=== PATIENT | female | born 1980 | race Caucasian/White ===

== ENCOUNTER 2017-06-05 10:56 | Emergency (ER) | payer BC ==
[2017-06-05 11:29] VITALS: BP 136/79
--- NOTE | 2017-06-05 12:03 | UC ---
Mynor Solis Angela, scribed for Rahat Coker MD on 06/05/17 at 1200 . General HPI - HPI Summary HPI Summary: This pt is a 36 y/o female presenting to [facility] c/o heart racing, dizziness, and seeing black spots x4 days s/p mowing her lawn. Pt reports she lost vision of both eyes, seeing black spots 4 days ago, now resolved. Pt states she took 1 hour to mow her lawn. She notes she went inside after she felt like passing out and sat down but had no relief, denies syncope. She notes she get SOB with ambulation since the onset of her symptoms. Pt currently denies chest pain, fever, chills, heart racing. - History of Current Complaint Chief Complaint: UCGeneralIllness Stated Complaint: HEART RACING SOB DIZZY THIS PAST WEEKEND Hx Obtained From: Patient Hx Last Menstrual Period: 06/15/17 Onset/Duration: Sudden Onset, Resolved - Heart racing has resolved. Associated Signs & Symptoms: Positive: Dizziness - Now resolved., Diaphoresis, Palpitations, SOB - with ambulation, Other. Negative: Abdominal Pain, Back Pain , Confusion, Chest Pain, Fever, Nausea, Syncope, Vomiting, Weakness - Allergy/Home Medications Allergies/Adverse Reactions: Allergies Allergy/AdvReac Type Severity Reaction Status Date / Time No Known Allergies Allergy Verified 06/05/17 11:21 Home Medications: Home Medications Sertraline* [Zoloft*] 50 mg PO DAILY 06/05/17 [History Confirmed 06/05/17] PMH/Surg Hx/FS Hx/Imm Hx - Surgical History Surgical History: None - Social History Alcohol Use: Occasionally Substance Use Type: None Smoking Status (MU): Never Smoked Tobacco Review of Systems Constitutional: Negative Skin: Negative Eyes: Other - Black out of both eyes. ENT: Negative Respiratory: Shortness Of Breath - with ambulation Cardiovascular: Palpitations - now resolved. Gastrointestinal: Negative Motor: Negative Neurovascular: Negative Neurological: Negative All Other Systems Reviewed And Are Negative: Yes Physical Exam Triage Information Reviewed: Yes Vital Signs: Initial Vital Signs Temp 99.6 F 06/05/17 11:22 Pulse 47 06/05/17 11:22 Resp 16 06/05/17 11:22 BP 136/79 06/05/17 11:22 Pulse Ox 100 06/05/17 11:22 Vital Signs Reviewed: Yes - Additional Comments The patient is well-nourished in no acute distress and in no acute pain. The skin is warm and skin color reflects adequate perfusion. Pt is diaphoretic. There is a red rash on pt's face. HEENT: The head is normocephalic and atraumatic. The pupils are equal and reactive. The conjunctivae are clear and without drainage. Nares are patent and without drainage. Mouth reveals moist mucous membranes and the throat is without erythema and exudate. The external ears are intact. The ear canals are patent and without drainage. The tympanic membranes are intact. Neck is supple with full range of motion and non-tender. There is no neck vein distension. The thyroid is palpable but no enlarged. Respiratory: Chest is non-tender. Lungs are clear to auscultation and breath sounds are symmetrical and equal. Cardiovascular: Pt is bradycardic. There is no murmur or rub auscultated. There is no peripheral edema and pulses are symmetrical and equal. The capillary refill is <2 seconds. Abdomen: The abdomen is soft and non-tender. There are normal bowel sounds heard in all four quadrants and there is no organomegaly palpated. Musculoskeletal: There is no back pain noted. Extremities are non-tender with full range of motion. There is good capillary refill. There is no peripheral edema or calf tenderness elicited. Neurological: Patient is alert and oriented to person, place and time. The patient has symmetrical motor strength in all four extremities. Psychiatric: The patient has an appropriate affect and does not exhibit any anxiety or depression. Diagnostics - EKG Cardiac Rate: Bradycardia Cardiac Rhythm: Other Rhythm: New - Third degree heart block Course/Dx - Course Course Of Treatment: I explained to the pt traveling by ambulance to the ED due to thrid degree heart block. She understood that something catastrophic could occur to her. Pt's friend agreed to dump truck driver her to the Emergency Department for further evaluation. I spoke with Dr. Lopez and the charge nurse at [facility] who are aware of the pt arriving to the ED. - Differential Dx - Multi-Symptom Differential Diagnoses: Cardiac Ischemia, Metabolic Abnormality, Other - bradycardia, third degree heart block, acute dyspnea, obesity, hypothyroidism Provider Diagnoses: Bradycardia third degree heart block Discharge - Discharge Plan Condition: Stable Disposition: AGAINST MEDICAL ADVICE Patient Education Materials: Bradycardia (ED) Referrals: Ila Robertson MD [Medical Doctor] - The documentation as recorded by the Mynor peraza Angela accurately reflects the service I personally performed and the decisions made by me, Rahat Coker MD.
== END 2017-06-05 11:55 | disposition left against medical advice (07) ==
LOC: UCEAST 10:56
DX: R00.1 Bradycardia, unspecified (principal); I44.2 Atrioventricular block, complete; R06.02 Shortness of breath
CPT/HCPCS: 93005; 99212; G0463

== ENCOUNTER 2017-06-05 12:17 | Inpatient (IN) | payer BC ==
--- NOTE | 2017-06-05 12:55 | ED ---
Palpitations / Dysrhythmia - HPI Summary HPI Summary: Patient is an otherwise healthy 36yo F presenting with feelings of heart racing , near syncopal episodes, chest pressure x 1 day, dizziness, SOB, dyspnea on exertion and feeling "off" since Sunday. First noticed immediately after mowing her lawn and felt she needed to sit down to catch her breath. This is abnormal for her as she is generally healthy. Since Sunday, the dizziness, racing heart have lingered, but the chest pressure did not return. Takes OCP and Zoloft daily. Denies drugs, ETOH or smoking. Denies PMH related to cardiac issues. Fx includes materal grandfather GOMEZ. She has not taken medications including aspirin. Rest makes the symptoms better, exertion makes the symptoms worse. Denies diaphoresis or nausea. She was seen at this morning this who sent her to ED after noticing a 3rd degree heart block on EKG. Denies known tick bite or rash. - History of Current Complaint Chief Complaint: EDDysrhythmPalp Time Seen by Provider: 06/05/17 12:25 Hx Obtained From: Patient Onset/Duration: Sudden Onset Timing: Constant Severity Initially: Moderate Severity Currently: Moderate Character: Fast, Irregular Aggravating: Exertion Alleviating: Rest Associated Signs & Symptoms: Lightheadedness, Dizzy, Shortness of Breath - Risk Factors Cardiac: Negative Pulmonary Embolism: Oral Contraceptives Atrial Fibrillation: Negative - Allergy/Home Medications Allergies/Adverse Reactions: Allergies Allergy/AdvReac Type Severity Reaction Status Date / Time No Known Allergies Allergy Verified 06/05/17 11:21 Home Medications: Home Medications Levonorgestrel & Eth Estradiol [Marlissa 0.15-30 mg-Mcg] 1 tab PO DAILY [History Confirmed 06/05/17] PMH/Surg Hx/FS Hx/Imm Hx Previously Healthy: Yes GI History: Denies: Other GI Disorders - Immunization History Hx Pertussis Vaccination: No Immunizations Up to Date: Unable to Obtain/Confirm Infectious Disease History: No Infectious Disease History: Denies: Traveled Outside the [place] in Last 30 Days - Social History Occupation: Employed Full-time Lives: With Family Alcohol Use: Occasionally Hx Substance Use: No Substance Use Type: Reports: None Hx Tobacco Use: No Smoking Status (MU): Never Smoked Tobacco Review of Systems Constitutional: Negative Eyes: Negative Positive: Palpitations, Chest Pain Positive: Shortness Of Breath Genitourinary: Negative Positive: no symptoms reported, see HPI Musculoskeletal: Negative Neurological: Other - near syncope Positive: Weakness Psychological: Normal All Other Systems Reviewed And Are Negative: Yes Physical Exam Triage Information Reviewed: Yes Vital Signs On Initial Exam: Initial Vitals BP 150/73 06/05/17 12:22 Vital Signs Reviewed: Yes Appearance: Positive: Well-Appearing, Well-Nourished Skin: Positive: Warm, Skin Color Reflects Adequate Perfusion Eyes: Positive: Normal, EOMI, ОЛЬГА Neck: Positive: Supple, No Lymphadenopathy Respiratory/Lung Sounds: Positive: Clear to Auscultation, Breath Sounds Present Cardiovascular: Positive: Pulses are Symmetrical in both Upper and Lower Extremities, IRR Neurological: Positive: Normal, Sensory/Motor Intact, Alert, Oriented to Person Place, Time, Speech Normal Psychiatric: Positive: Normal AVPU Assessment: Alert Diagnostics - Vital Signs Vital Signs Temp Pulse Resp BP Pulse Ox 06/05/17 12:47 99 06/05/17 12:24 53 18 99 06/05/17 12:23 99.9 F 63 16 150/73 100 06/05/17 12:22 150/73 - Laboratory Result Diagrams: 06/05/17 12:45 06/05/17 12:45 Lab Statement: Any lab studies that have been ordered have been reviewed, and results considered in the medical decision making process. Course/Dx - Course Course Of Treatment: EKG shows 3rd degree heart block. Dr Mckeon called at 12: 45pm shortly after patients arrival to the ED. Infectious disease Dr. Valentin is not immigration consultant at this time. Lyme titers were drawn. Rocephin 2g started in ED. Will admit to hospitalist service for further workup. 3 EKG's all show 3rd degree. Spoke with DR. Zapata at 2:30p who accepts patient to admit. Patient made aware and is OK with plan. - Diagnoses Differential Diagnosis/HQI/PQRI: Positive: AV Block, Cardiomyopathy, Coronary Artery Disease, Medication Induced Provider Diagnoses: Third degree heart block Discharge - Discharge Plan Condition: Stable Disposition: ADMITTED TO [facility]
[2017-06-05 13:03] LABS: Hematocrit 36 % (35-47); Hemoglobin 12.1 g/dl (12.0-16.0); Mean Corpuscular HGB Conc 34 g/dl (31-36); Mean Corpuscular Hemoglobin 26 pg (27-31); Mean Corpuscular Volume 79 fL (80-97); Mean Platelet Volume 9 um3 (7.4-10.4); Red Blood Count 4.57 10^6/ul (4.0-5.4); Red Cell Distribution Width 15 % (10.5-15); White Blood Count 9.2 10^3/ul (3.5-10.8)
[2017-06-05 13:23] LABS: ALT 25 U/L (7-52); AST 19 U/L (13-39); Albumin 3.8 g/dL (3.2-5.2); Alkaline Phosphatase 91 U/L (34-104); Anion Gap 8 mmol/L (2-11); Blood Urea Nitrogen 12 mg/dL (6-24); CO2 Carbon Dioxide 22 mmol/L (22-32); Calcium 8.7 mg/dL (8.6-10.3); Chloride 106 mmol/L (101-111); Creatine Kinase 44 U/L (10-223); EGFR African American 105.6 (>60); EGFR Non-African American 82.1 (>60); Globulin 3.7 g/dL (2-4); Glucose 106 mg/dL (70-100); Magnesium 1.7 mg/dL (1.9-2.7); Potassium 3.6 mmol/L (3.5-5.0); Sodium 136 mmol/L (133-145); Total Protein 7.5 g/dL (6.4-8.9)
--- NOTE | 2017-06-05 13:26 | RAD ---
INDICATION: Chest pain. COMPARISON: There are no prior studies available for comparison. TECHNIQUE: A portable view of the chest was obtained. FINDINGS: Cardiac and mediastinal contours appear to be within normal limits. The lungs are clear. No pleural effusion is seen. IMPRESSION: NO EVIDENCE FOR ACUTE DISEASE.
[2017-06-05 13:49] LABS: T4 9.48 mcg/mL (6.09-12.23)
[2017-06-05 13:50] LABS: TSH (Thyroid Stimulating Horm) 1.39 mcIU/mL (0.34-5.60)
[2017-06-05] MEDS ORDERED: Magnesium Sulfate 2 GM IV* 2 GM/50 ML BAG IVPB ONE (15:01)
[2017-06-05] MEDS ORDERED: Ondansetron INJ* 2 MG/ML VIAL IV PRN (15:24)
[2017-06-05] MEDS ORDERED: Acetaminophen TAB* 325 MG PO PRN (15:24)
--- NOTE | 2017-06-05 17:23 | ECHO ---
Patient: TARUN MARTINEZ [facility] Rec#: [id number] : 1980 Date: 06/05/2017 Age: 36y Height: 175.26 cm / 69.0 in Weight: 101.6 kg / 223.9 lbs Sex: F BSA: 2.17 Room#: ICU 4 Admit Date#: 06/05/2017 Type: Inpatient Referring: Amber Zapata DO Reading: Milton Rivas MD Aircraft Seat Upholsterer: Malika Villalba RDCS,RDMS CC: Sherman Moore MD Transthoracic Echocardiogram Indication: Abnormal EKG, 3rd degree heart block BP: 131/61 HR: 47 Rhythm: NSR Findings History: Palpitations Technical Comments: The study quality is good. Completed 1710 Left Ventricle: The left ventricular chamber size is normal. There is no left ventricular hypertrophy. Global left ventricular wall motion and contractility are within normal limits. There is normal left ventricular systolic function. The estimated ejection fraction is 55-60%. Normal left ventricular diastolic filling is observed. Left Atrium: The left atrial chamber size is normal. Right Ventricle: The right ventricular chamber size and systolic function are within normal limits. Right Atrium: The right atrial cavity size is normal. Aortic Valve: The aortic valve is trileaflet. There is no evidence of aortic valve thickening. Systolic excursion of the aortic valve is normal. There is no evidence of aortic regurgitation. There is no evidence of aortic stenosis. Mitral Valve: The mitral valve leaflets appear normal. There is a trace of mitral regurgitation. There is no evidence of mitral stenosis. Tricuspid Valve: The tricuspid valve leaflets are normal. There is trace tricuspid regurgitation. Pulmonic Valve: The pulmonic valve appears normal. There is a trace pulmonic regurgitation. Pericardium: There is no significant pericardial effusion. Aorta: The aortic root appears normal. There is no dilatation of the aortic arch. Pulmonary Artery: The main pulmonary artery is not well visualized. Venous: The inferior vena cava is dilated. There is a greater than 50% respiratory change in the inferior vena cava dimension. Conclusions Global left ventricular wall motion and contractility are within normal limits. There is normal left ventricular systolic function. The estimated ejection fraction is 55-60%. Normal left ventricular diastolic filling is observed. No significant valvular disease: There is a trace of mitral regurgitation. There is trace tricuspid regurgitation. No reports of prior studies offered for comparison. Measurements Name Value Normal Range RVIDd (AP) 2D 2.8 cm (0.9 - 2.6) RVDdMajor (2D) 2.5 cm (2.2 - 4.4) RAd ISD 4CH 5.3 cm (3.4 - 4.9) RA (A4C)W 3.9 cm (2.9 - 4.6) IVSd (2D) 0.7 cm (0.6 - 1) LVPWd (2D) 0.8 cm (0.6 - 1) LVIDd (2D) 5.4 cm (3.6 - 5.4) LVIDs (2D) 3.4 cm - LV FS (2D) 37 % (25 - 45) Aortic Annulus 2.1 cm (1.4 - 2.6) Ao root diameter (2D) 2.7 cm (2.1 - 3.5) Ascending Ao 2.6 cm (2.1 - 3.4) Aortic arch 2.7 cm (1.8 - 3.4) LA dimension (AP) 2D 3.5 cm (2.3 - 3.8) LAd ISD 4CH 5.3 cm (2.9 - 5.3) LA ISD 4CH W 4 cm (2.5 - 4.5) Name Value Normal Range LA ESV SP 4CH (A/L) 53.88 ml - LA ESV SP 2CH (A/L) 45.56 ml - LA ESV BP (A/L) 53.61 ml - LA ESV BP (A/L) index 25 ml/m2 - LA ESV SP 4CH (MOD) 50.29 ml - LA ESV SP 2CH (MOD) 41.95 ml - Name Value Normal Range MV E-wave Vmax 0.9 m/sec - MV deceleration time 199 msec - MV A-wave Vmax 0.5 m/sec - MV E:A ratio 1.6 ratio - LV septal e' Vmax 0.12 m/sec - LV lateral e' Vmax 0.12 m/sec - LV E:e' septal ratio 7.5 ratio - LV E:e' lateral ratio 7.5 ratio - Name Value Normal Range AV Vmax 1.6 m/sec - AV VTI 34.2 cm - AV peak gradient 10 mmHg - AV mean gradient 4.7 mmHg - LVOT Vmax 1.4 m/sec - LVOT VTI 30.6 cm - LVOT peak gradient 8 mmHg - LVOT mean gradient 3.8 mmHg - WARREN Vmax 1 m/sec - Name Value Normal Range RAP 8 mmHg - IVC diameter 2.2 cm - Name Value Normal Range PV Vmax 0.8 m/sec - PV peak gradient 3.2 mmHg -
--- NOTE | 2017-06-05 19:47 | HP ---
CC: Dr. Moore * HISTORY AND PHYSICAL: DATE OF ADMISSION: 06/05/17 PRIMARY CARE PROVIDER: Dr. Moore. CHIEF COMPLAINT: Chest pain and lightheadedness. HISTORY OF PRESENT ILLNESS: Ms. Woodruff is a 36-year-old female whose story begins this past Sunday when she was out mowing her lawn and felt as if her heart was racing. She notes that when she does physical activity, sometimes her heart will race, so she will sit down and within 5 minutes, it usually goes away. She states she finished mowing her yard. She went inside, she sat down, and the racing continued. The patient states that she continued to have a feeling of her heart racing all weekend long. She does state, however, it seemed to wax and wane in intensity. This past Sunday, she noted she felt lightheaded upon standing up. She also felt as if there were black spots in her vision when she stood up. She states that she never fainted. She states also on Sunday, she had pressure in her chest. She also described having increased shortness of breath with minimal activity. She states that normally she will park at the back end of the [employer] parking lot and walk to the store without any difficulty. However, she states she parked in her usual spot and did not think that she was going to make it to the store. She states overall she has been otherwise feeling well prior to this. She denies any recent fevers or chills. She denies any tick bites that she is aware of. She is not aware of any erythema migrans rash. PAST MEDICAL HISTORY: Depression. PAST SURGICAL HISTORY: None. MEDICATIONS: 1. Zoloft 50 mg p.o. daily. 2. 1 tab p.o. daily. ALLERGIES: None. FAMILY HISTORY: Mom is living, she is 64, she has depression and hypertension. Dad living, he is 69, he has obstructive colitis. SOCIAL HISTORY: The patient is nonsmoker, she drinks alcohol rarely. 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 She is not , she has no children. She indicates her mom, Ryann Woodruff, would be her healthcare proxy. REVIEW OF SYSTEMS: A complete 11-system review of systems was obtained. Pertinent positives and negatives are as per HPI and otherwise negative. PHYSICAL EXAMINATION GENERAL: The patient is a well-developed, obese, young female, lying in the stretcher, in no acute distress. VITAL SIGNS: Blood pressure 131/61, pulse 49, respirations 18, temp 99.9, O2 sat 98% on room air. HEENT: Pupils are equal, they are round, they react to light. Extraocular muscles are intact. Oropharynx is clear. Oral mucosa is moist. NECK: There is no submandibular, cervical, or supraclavicular adenopathy. Thyroid is not enlarged. No thyroid nodules noted. PULMONARY: Lungs are clear to auscultation bilaterally. CARDIAC: Normal S1, S2. Heart rate is bradycardic. I did not appreciate any murmurs. There is no lower extremity edema. ABDOMEN: Bowel sounds are present. Abdomen is soft, nontender, nondistended. MUSCULOSKELETAL: There is no cyanosis or clubbing of the digits. There is full active range of motion of all 4 extremities. NEURO: Cranial nerves II through XII are grossly intact. Sensation is intact to light touch throughout. Strength is 5/5 and symmetric in both upper and lower extremities bilaterally. SKIN: Warm and dry. I did not appreciate any rash on the patient's upper extremities and back. She has pants on covering her lower extremities. When she is upstairs in a hospital bed, she will take off her pants and I will inspect her skin for evidence of erythema migrans rash. PSYCH: The patient is alert, she is oriented x3. Affect appears appropriate. DIAGNOSTIC STUDIES/LAB DATA: WBC 9.2, hemoglobin 12.1, hematocrit 36, platelets 191. INR 0.99. Sodium 136, potassium 3.6, chloride 106, CO2 22, BUN 12, creatinine 0.80, glucose 106, calcium 8.7, magnesium 1.7. Bilirubin 0.4, AST 19, ALT 25, alk phos 91. CPK 44. CK-MB 0.9. Troponin 0. Albumin 3.8. TSH 1.3. Chest x-ray: No evidence for acute disease. EKG reveals third-degree heart block with an escape rate in the 40s to 50s. ASSESSMENT AND PLAN: Ms. Woodruff is a 36-year-old female who for the last 3 days has been symptomatic with palpitations, lightheadedness, chest discomfort, increased shortness of breath with activity, who was found to be in third- degree heart block. 1. Third-degree heart block. 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 The patient, however, does not recall any tick bites or any of the evidence of erythema migrans rash. Lyme serology has been sent, results are pending at this time. Given the high likelihood that this represents Lyme carditis, the patient will be started on ceftriaxone 2 g IV daily. She will be monitored in the intensive care unit. Currently, she is hemodynamically stable. She has been seen in consultation by Dr. Mckeon. In addition to the ceftriaxone, she will get a transthoracic echocardiogram and a second troponin, though this is likely to be normal. 2. Depression: The patient will continue on her usual dose of Zoloft. 3. DVT prophylaxis. According to the Adult Thrombosis Prophylaxis Risk Factor Assessment Guide, the patient has a total risk factor score of 1 making her low risk. Ambulation will be utilized as DVT prophylaxis. 4. Code status is full and, again, the patient indicates her mom, Ryann Woodruff , is her healthcare proxy. TIME SPENT: Fifty-five minutes was spent admitting this patient. [id number]/[facility] #: [id number] NIKKI
[2017-06-05 19:58] LABS: Urine Bacteria 1+ (Absent); Urine Bilirubin Negative (Negative); Urine Glucose Negative (Negative); Urine Nitrite Negative (Negative)
--- NOTE | 2017-06-05 20:12 | CONS ---
CARDIOLOGY CONSULTATION: DATE OF CONSULT: 06/05/17 INDICATION FOR CONSULT: Third-degree heart block. HISTORY OF PRESENT ILLNESS: The patient is a 36-year-old female with very little past medical history, who has noticed an increased shortness of breath and dyspnea on exertion for the past 5 days or so. The patient states that she was mowing her lawn last Sunday and became very short of breath and felt like her heart was racing. The patient states that over the weekend, she felt similar episodes with less exertion and felt significantly more short of breath. Today, she was brought to the [facility] by one of the nurses in her office and she was found to be in third-degree heart block. She was transferred over to [facility]. The patient denies any tick bites. Denies any exposure to any medications. She denies alcohol or tobacco use. She denies any illicit drugs. PAST MEDICAL HISTORY: She does have a history of gastroesophageal reflux disease. MEDICATIONS: Outpatient medications: 1. Zoloft 50 mg a day. 2. control pills. ALLERGIES: No known drug allergies. FAMILY HISTORY: Mother has gallbladder disease, father has colon polyps; both of them are alive. SOCIAL HISTORY: She works at [employer] as an aide. She denies tobacco or alcohol use. PHYSICAL EXAM: Height is 5 feet 9 inches, weight 224 pounds, heart rate is 50, blood pressure 131/61, respiratory rate is 18, oxygen saturation 98% on room air. Sclerae anicteric. Oropharynx is pink without erythema. Carotids are 2+ without bruits. JVD is normal. Thyroid is normal. Cardiac Exam: S1, S2 without any murmurs, rubs, or gallops. Lungs are clear to auscultation bilaterally. There is no dullness to percussion. Abdomen is soft, nontender, and nondistended with normoactive bowel sounds. Extremities show no edema. She has 2+ pulses throughout. The patient is awake, alert, and oriented. She moves all 4 extremities equally. There is no evidence of a rash. DIAGNOSTIC STUDIES/LAB DATA: CBC within normal limits. Chemistry is within normal limits. TSH 1.39. AST and ALT are within normal limits. EKG demonstrates normal sinus rhythm with intermittent third-degree heart block. Chest x-ray is normal. IMPRESSION: This is a 36-year-old female who comes to the emergency room because of dyspnea on exertion. She was found to be in third-degree heart block. 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 PLAN: The patient will be started on appropriate antibiotics. Lyme titers have been sent. Her thyroid is normal. The patient will get an echocardiogram here in the hospital. The patient will be observed for the next 4 to 5 days in the intensive care unit. This was discussed with Dr. Amber Zapata, who will be admitting the patient. [id number]/[facility] #: [id number] MTDD
[2017-06-05] MEDS: LEVONORGESTREL PO SCH (22:01)
[2017-06-05] MEDS: ETHINYL ESTRADIOL PO SCH (22:01)
--- NOTE | 2017-06-06 07:12 | PN ---
Subjective Date of Service: 06/06/17 Interval History: Pt is feeling well this AM. She denies any chest discomfort this AM but did have some mild discomfort last evening. She denies any lightheadedness. Objective Active Medications: Acetaminophen (Tylenol Tab*) 650 mg PO Q4H PRN PRN Reason: PAIN Ceftriaxone Sodium 2 gm/ (Sodium Chloride) 100 mls @ 200 mls/hr IVPB Q24H RAJNI Pto: (Levonorgestrel & Eth Estradiol [ Marlissa 0.15-30 Mg- Mcg] 1 Tab) 1 tab PO BEDTIME [facility] Last Admin: 06/05/17 22:01 Dose: 1 tab Ondansetron HCl (Zofran Inj*) 4 mg IV Q6H PRN PRN Reason: NAUSEA Sertraline HCl (Zoloft*) 50 mg PO DAILY [facility] Vital Signs 06/05/17 06/05/17 06/05/17 15:00 15:32 15:46 Temperature Pulse Rate 69 48 48 Respiratory 18 23 18 Rate Blood Pressure 131/61 126/58 (mmHg) O2 Sat by Pulse 98 97 98 Oximetry 06/05/17 06/05/17 06/05/17 15:57 16:00 16:01 Temperature 98.4 F Pulse Rate 50 53 46 Respiratory 19 18 Rate Blood Pressure 148/71 128/72 128/72 (mmHg) O2 Sat by Pulse 98 98 98 Oximetry 06/05/17 06/05/17 06/05/17 16:15 16:30 16:46 Temperature Pulse Rate 47 48 47 Respiratory 17 14 11 Rate Blood Pressure 126/67 127/61 117/69 (mmHg) O2 Sat by Pulse 97 98 97 Oximetry 06/05/17 06/05/17 06/05/17 17:00 17:01 17:34 Temperature Pulse Rate 47 46 45 Respiratory 15 25 23 Rate Blood Pressure 118/67 120/45 (mmHg) O2 Sat by Pulse 97 96 97 Oximetry 06/05/17 06/05/17 06/05/17 17:46 18:00 18:24 Temperature Pulse Rate 45 45 Respiratory 20 24 21 Rate Blood Pressure 119/70 (mmHg) O2 Sat by Pulse 98 96 Oximetry 06/05/17 06/05/17 06/05/17 18:30 19:00 19:30 Temperature Pulse Rate 46 47 Respiratory 18 16 16 Rate Blood Pressure 119/61 111/64 130/71 (mmHg) O2 Sat by Pulse 97 97 Oximetry 06/05/17 06/05/17 06/05/17 19:31 20:00 21:00 Temperature 98.8 F Pulse Rate 46 44 Respiratory 28 18 Rate Blood Pressure 116/68 112/72 (mmHg) O2 Sat by Pulse 96 98 Oximetry 06/05/17 06/05/17 06/05/17 22:00 22:01 22:37 Temperature Pulse Rate 45 47 45 Respiratory 35 14 16 Rate Blood Pressure 111/58 (mmHg) O2 Sat by Pulse 97 98 97 Oximetry 06/05/17 06/05/17 06/05/17 22:38 23:00 23:23 Temperature 99.1 F Pulse Rate 45 45 Respiratory 15 9 Rate Blood Pressure 94/46 (mmHg) O2 Sat by Pulse 97 97 Oximetry 06/06/17 06/06/17 06/06/17 00:00 00:01 01:00 Temperature Pulse Rate 45 46 43 Respiratory 17 20 19 Rate Blood Pressure 105/63 117/68 (mmHg) O2 Sat by Pulse 96 99 97 Oximetry 06/06/17 06/06/17 06/06/17 02:00 03:00 04:00 Temperature 100.0 F Pulse Rate 43 43 42 Respiratory 18 25 16 Rate Blood Pressure 115/69 94/51 97/55 (mmHg) O2 Sat by Pulse 96 96 97 Oximetry 06/06/17 06/06/17 05:00 06:00 Temperature Pulse Rate 43 42 Respiratory 17 18 Rate Blood Pressure 100/60 85/46 (mmHg) O2 Sat by Pulse 98 98 Oximetry Oxygen Devices in Use Now: None Appearance: Young female lying flat in bed, NAD Eyes: No Scleral Icterus Ears/Nose/Mouth/Throat: Mucous Membranes Moist Respiratory: Symmetrical Chest Expansion and Respiratory Effort, Clear to Auscultation Cardiovascular: NL Sounds; No Murmurs; No JVD, No Edema, - - bradycardic and regular (3rd degree HB on monitor) Abdominal: NL Sounds; No Tenderness; No Distention Extremities: No Clubbing, Cyanosis Skin: No Rash or Ulcers, No Nodules or Sclerosis, - - no EM rash noted on pt's back/legs/trunk Neurological: Alert and Oriented x 3 Result Diagrams: 06/05/17 12:45 06/05/17 12:45 Microbiology and Other Data: Microbiology 06/05/17 15:55 Nasal Screen MRSA (PCR)(LUKAS) - Final Nasal Mrsa Negative Assess/Plan/Problems-Billing Ms Woodruff is a 36 yo F who has a h/o depression and presented to the ER with c/ o chest discomfort and lightheadedness and was found to be in 3rd degree HB. - Patient Problems (1) Third degree heart block Current Visit: Yes Status: Acute Code(s): I44.2 - ATRIOVENTRICULAR BLOCK, COMPLETE SNOMED Code(s): 22496898 Comment: The 3rd degree heart block is felt to be likely secondary to lyme though the patient does not recall any tick bites or EM rash. No rash is noticable currently. Will continue ceftriaxone 2g IV daily for now. Await lyme serology. A rare side effect of zoloft is AV block. Will stop her zoloft for the time being. She is asymptomatic currently so will just continue to monitor in the ICU. Echo is without any significant findings. Troponins negative. Cardiology is following. (2) Depression Current Visit: Yes Status: Acute Code(s): F32.9 - MAJOR DEPRESSIVE DISORDER , SINGLE EPISODE, UNSPECIFIED SNOMED Code(s): 83430671 Comment: Hold zoloft due to rare side effect of AV block. (3) DVT prophylaxis Current Visit: Yes Status: Acute Code(s): HPT1045 - SNOMED Code(s): 041328423 Comment: ambulation (4) Full code status Current Visit: Yes Status: Acute Code(s): Z78.9 - OTHER SPECIFIED HEALTH STATUS SNOMED Code(s): 458592411
[2017-06-06] MEDS ORDERED: Sertraline* 50 MG TAB PO SCH (09:00)
--- NOTE | 2017-06-06 16:54 | PN ---
Subjective Date of Service: 06/06/17 - CC: palpitations Interval History: The patient gets mildly orthostatically lightheaded getting OOB to toilet, but otherwise no new c/o. Medications Active Medications: Acetaminophen (Tylenol Tab*) 650 mg PO Q4H PRN PRN Reason: PAIN Ceftriaxone Sodium 2 gm/ (Sodium Chloride) 100 mls @ 200 mls/hr IVPB Q24H [facility] Last Admin: 06/06/17 11:58 Dose: 200 mls/hr Pto: (Levonorgestrel & Eth Estradiol [ Marlissa 0.15-30 Mg- Mcg] 1 Tab) 1 tab PO BEDTIME [facility] Last Admin: 06/05/17 22:01 Dose: 1 tab Ondansetron HCl (Zofran Inj*) 4 mg IV Q6H PRN PRN Reason: NAUSEA Objective Vital Signs: Temp Pulse Resp BP Pulse Ox 97.6 F 39 18 94/52 97 06/06/17 07:38 06/06/17 15:00 06/06/17 15:48 06/06/17 15:00 06/06/17 15:00 Oxygen Devices in Use Now: None Appearance: young woman, lying in bed, in no disteress. Eyes: No Scleral Icterus, PERRLA Ears/Nose/Mouth/Throat: Clear Oropharnyx, Mucous Membranes Moist Neck: No Thyroid Enlargement, Masses Respiratory: Clear to Auscultation Cardiovascular: NL Sounds; No Murmurs; No JVD, RRR Abdominal: No Hepatosplenomegaly - obese Extremities: No Edema, No Clubbing, Cyanosis Skin: No Rash or Ulcers Neurological: Alert and Oriented x 3, NL Muscle Strength and Tone Lines/Tubes/Other Access: Clean, Dry and Intact Peripheral IV Laboratory Results: INR (Anticoag Therapy) 0.99 (0.89-1.11) 06/05/17 12:45 APTT 26.2 seconds (26.0-36.3) 06/05/17 12:45 Total Bilirubin 0.40 mg/dL (0.2-1.0) 06/05/17 12:45 AST 19 U/L (13-39) 06/05/17 12:45 ALT 25 U/L (7-52) 06/05/17 12:45 Alkaline Phosphatase 91 U/L (34-104) 06/05/17 12:45 CK-MB (CK-2) 0.9 ng/mL (0.6-6.3) 06/05/17 12:45 Total Protein 7.5 g/dL (6.4-8.9) 06/05/17 12:45 Albumin 3.8 g/dL (3.2-5.2) 06/05/17 12:45 Globulin 3.7 g/dL (2-4) 06/05/17 12:45 Albumin/Globulin Ratio 1.0 (1-3) 06/05/17 12:45 TSH 1.39 mcIU/mL (0.34-5.60) 06/05/17 12:45 06/05/17 18:20 Troponin I 0.00 Lyme serology +, Ig breakdown/Western blot pending. EKG Data: NSR, AV dissociation with stable junctional escape. Assessment/Plan 36 yo with new onset palpitations and lightheaded with complete heart block. Looking like Lyme disease although the patient has had no awareness of a tick bite. Awaiting immunoglobulin titers. On ceftriaxone empirically, agree. Stable junctional escape in a young woman, continue to monitor.
[2017-06-06] MEDS: LEVONORGESTREL PO SCH (21:05)
[2017-06-06] MEDS: ETHINYL ESTRADIOL PO SCH (21:05)
--- NOTE | 2017-06-07 07:33 | PN ---
Subjective Date of Service: 06/07/17 Interval History: Pt is feeling about the same today. No chest pain or SOB. She has no new issues this AM. Objective Active Medications: Acetaminophen (Tylenol Tab*) 650 mg PO Q4H PRN PRN Reason: PAIN Ceftriaxone Sodium 2 gm/ (Sodium Chloride) 100 mls @ 200 mls/hr IVPB Q24H [facility] Last Admin: 06/06/17 11:58 Dose: 200 mls/hr Pto: (Levonorgestrel & Eth Estradiol [ Marlissa 0.15-30 Mg- Mcg] 1 Tab) 1 tab PO BEDTIME [facility] Last Admin: 06/06/17 21:05 Dose: 1 tab Ondansetron HCl (Zofran Inj*) 4 mg IV Q6H PRN PRN Reason: NAUSEA Vital Signs 06/06/17 06/06/17 06/06/17 07:27 07:38 08:00 Temperature 97.6 F Pulse Rate 42 Respiratory 16 25 Rate Blood Pressure (mmHg) O2 Sat by Pulse 96 Oximetry 06/06/17 06/06/17 06/06/17 08:01 09:00 09:59 Temperature Pulse Rate 42 43 Respiratory 19 16 16 Rate Blood Pressure 102/49 101/63 (mmHg) O2 Sat by Pulse 97 99 Oximetry 06/06/17 06/06/17 06/06/17 10:00 10:39 11:00 Temperature Pulse Rate 41 41 Respiratory 12 16 14 Rate Blood Pressure 102/67 100/57 (mmHg) O2 Sat by Pulse 98 96 Oximetry 06/06/17 06/06/17 06/06/17 11:22 12:00 12:08 Temperature Pulse Rate 40 40 Respiratory 16 13 19 Rate Blood Pressure 100/46 100/46 (mmHg) O2 Sat by Pulse 98 97 Oximetry 06/06/17 06/06/17 06/06/17 13:00 13:57 14:00 Temperature Pulse Rate 42 39 Respiratory 13 18 18 Rate Blood Pressure 107/62 87/45 (mmHg) O2 Sat by Pulse 98 97 Oximetry 06/06/17 06/06/17 06/06/17 14:57 15:00 15:47 Temperature Pulse Rate 39 Respiratory 18 14 18 Rate Blood Pressure 94/52 (mmHg) O2 Sat by Pulse 97 Oximetry 08/16/17 08/16/17 08/16/17 15:48 16:00 17:00 Temperature Pulse Rate 39 38 Respiratory 18 18 21 Rate Blood Pressure 109/65 (mmHg) O2 Sat by Pulse 97 99 Oximetry 06/06/17 06/06/17 06/06/17 17:01 17:20 18:00 Temperature Pulse Rate 39 40 Respiratory 13 18 16 Rate Blood Pressure 110/60 121/69 (mmHg) O2 Sat by Pulse 99 100 Oximetry 06/06/17 06/06/17 06/06/17 19:00 19:02 20:00 Temperature 98.0 F Pulse Rate 40 39 Respiratory 18 7 25 Rate Blood Pressure (mmHg) O2 Sat by Pulse 97 98 Oximetry 06/06/17 06/06/17 06/06/17 20:01 21:00 21:04 Temperature Pulse Rate 39 36 Respiratory 18 25 20 Rate Blood Pressure 107/58 98/65 (mmHg) O2 Sat by Pulse 95 97 Oximetry 06/06/17 06/06/17 06/06/17 22:00 23:00 23:12 Temperature Pulse Rate 36 35 35 Respiratory 17 16 18 Rate Blood Pressure 90/45 109/59 (mmHg) O2 Sat by Pulse 96 96 96 Oximetry 06/07/17 06/07/17 06/07/17 00:00 01:00 01:01 Temperature 99.6 F Pulse Rate 35 37 38 Respiratory 13 15 15 Rate Blood Pressure 88/46 114/66 (mmHg) O2 Sat by Pulse 96 98 97 Oximetry 06/07/17 06/07/17 06/07/17 02:00 03:00 03:26 Temperature Pulse Rate 35 Respiratory 16 15 18 Rate Blood Pressure (mmHg) O2 Sat by Pulse 96 Oximetry 06/07/17 06/07/17 06/07/17 03:27 03:28 03:29 Temperature Pulse Rate 35 35 35 Respiratory 18 18 18 Rate Blood Pressure (mmHg) O2 Sat by Pulse 96 96 95 Oximetry 06/07/17 06/07/17 06/07/17 03:30 03:31 03:32 Temperature Pulse Rate 35 35 35 Respiratory 17 20 17 Rate Blood Pressure (mmHg) O2 Sat by Pulse 95 95 96 Oximetry 06/07/17 06/07/17 06/07/17 03:33 03:34 03:35 Temperature Pulse Rate 35 35 36 Respiratory 14 18 19 Rate Blood Pressure (mmHg) O2 Sat by Pulse 96 96 96 Oximetry 0806/07/17 06/07/17 03:36 03:37 03:38 Temperature Pulse Rate 36 36 36 Respiratory 18 18 21 Rate Blood Pressure (mmHg) O2 Sat by Pulse 96 96 96 Oximetry 06/07/17 06/07/17 06/07/17 03:39 03:40 03:41 Temperature Pulse Rate 35 35 35 Respiratory 18 18 19 Rate Blood Pressure (mmHg) O2 Sat by Pulse 96 96 96 Oximetry 06/07/17 06/07/17 06/07/17 03:42 03:43 03:44 Temperature Pulse Rate 35 36 36 Respiratory 19 19 18 Rate Blood Pressure (mmHg) O2 Sat by Pulse 95 96 96 Oximetry 06/07/17 06/07/17 06/07/17 03:45 03:46 03:47 Temperature Pulse Rate 36 35 35 Respiratory 18 16 18 Rate Blood Pressure (mmHg) O2 Sat by Pulse 96 96 96 Oximetry 06/07/17 06/07/17 06/07/17 03:48 03:49 03:50 Temperature Pulse Rate 35 35 35 Respiratory 18 18 18 Rate Blood Pressure (mmHg) O2 Sat by Pulse 96 96 96 Oximetry 06/07/17 06/07/17 06/07/17 03:51 03:52 03:53 Temperature Pulse Rate 35 35 35 Respiratory 17 19 18 Rate Blood Pressure (mmHg) O2 Sat by Pulse 96 96 96 Oximetry 06/07/17 06/07/17 06/07/17 03:54 03:55 03:56 Temperature Pulse Rate 35 35 35 Respiratory 18 16 20 Rate Blood Pressure (mmHg) O2 Sat by Pulse 96 96 96 Oximetry 06/07/17 06/07/17 06/07/17 03:57 03:58 03:59 Temperature Pulse Rate 35 35 35 Respiratory 17 18 17 Rate Blood Pressure (mmHg) O2 Sat by Pulse 96 97 96 Oximetry 06/07/17 06/07/17 06/07/17 04:00 04:02 04:03 Temperature 98.9 F Pulse Rate 34 34 34 Respiratory 18 13 9 Rate Blood Pressure 99/53 (mmHg) O2 Sat by Pulse 96 97 97 Oximetry 06/07/17 06/07/17 06/07/17 04:04 04:05 04:06 Temperature Pulse Rate 35 34 34 Respiratory 5 13 14 Rate Blood Pressure (mmHg) O2 Sat by Pulse 97 96 96 Oximetry 06/07/17 06/07/1717 04:07 04:08 04:09 Temperature Pulse Rate 34 34 34 Respiratory 19 18 13 Rate Blood Pressure (mmHg) O2 Sat by Pulse 96 96 96 Oximetry 06/07/17 06/07/17 06/07/17 04:10 04:11 04:12 Temperature Pulse Rate 35 35 35 Respiratory 21 21 11 Rate Blood Pressure (mmHg) O2 Sat by Pulse 97 97 97 Oximetry 06/07/17 06/07/17 06/07/17 04:13 04:14 04:15 Temperature Pulse Rate 36 36 35 Respiratory 20 17 13 Rate Blood Pressure (mmHg) O2 Sat by Pulse 98 97 96 Oximetry 06/07/17 06/07/17 06/07/17 04:16 04:17 04:18 Temperature Pulse Rate 35 35 36 Respiratory 23 19 16 Rate Blood Pressure (mmHg) O2 Sat by Pulse 97 98 98 Oximetry 06/07/17 06/07/17 06/07/17 04:19 04:20 04:21 Temperature Pulse Rate 36 35 35 Respiratory 10 15 18 Rate Blood Pressure (mmHg) O2 Sat by Pulse 97 96 95 Oximetry 06/07/17 06/07/17 06/07/17 04:22 04:23 04:24 Temperature Pulse Rate 35 35 35 Respiratory 18 21 17 Rate Blood Pressure (mmHg) O2 Sat by Pulse 97 97 97 Oximetry 06/07/17 06/07/17 06/07/17 04:25 04:26 04:27 Temperature Pulse Rate 35 35 35 Respiratory 19 22 17 Rate Blood Pressure (mmHg) O2 Sat by Pulse 97 97 97 Oximetry 06/07/17 06/07/17 06/07/17 04:28 04:29 04:30 Temperature Pulse Rate 35 35 35 Respiratory 20 19 17 Rate Blood Pressure (mmHg) O2 Sat by Pulse 97 96 97 Oximetry 06/07/17 06/07/17 06/07/17 04:31 04:32 04:33 Temperature Pulse Rate 35 36 35 Respiratory 17 17 19 Rate Blood Pressure (mmHg) O2 Sat by Pulse 98 96 96 Oximetry 06/07/17 06/07/17 06/07/17 04:34 04:35 04:36 Temperature Pulse Rate 35 35 35 Respiratory 17 15 12 Rate Blood Pressure (mmHg) O2 Sat by Pulse 95 94 95 Oximetry 06/07/17 06/07/17 06/07/17 04:37 04:38 04:39 Temperature Pulse Rate 36 35 36 Respiratory 13 14 17 Rate Blood Pressure (mmHg) O2 Sat by Pulse 94 93 95 Oximetry 06/07/17 06/07/17 06/07/17 04:40 04:41 04:42 Temperature Pulse Rate 35 36 35 Respiratory 16 14 10 Rate Blood Pressure (mmHg) O2 Sat by Pulse 94 96 96 Oximetry 06/07/17 06/07/17 06/07/17 04:43 04:44 04:45 Temperature Pulse Rate 35 35 35 Respiratory 9 14 13 Rate Blood Pressure (mmHg) O2 Sat by Pulse 94 95 96 Oximetry 06/07/17 06/07/17 06/07/17 04:46 04:47 04:48 Temperature Pulse Rate 36 36 36 Respiratory 19 18 16 Rate Blood Pressure (mmHg) O2 Sat by Pulse 95 94 95 Oximetry 06/07/17 06/07/17 06/07/17 04:49 04:50 04:51 Temperature Pulse Rate 36 36 35 Respiratory 20 32 23 Rate Blood Pressure (mmHg) O2 Sat by Pulse 95 96 96 Oximetry 06/07/17 06/07/17 06/07/17 04:52 04:53 04:54 Temperature Pulse Rate 36 36 36 Respiratory 19 18 11 Rate Blood Pressure (mmHg) O2 Sat by Pulse 96 95 95 Oximetry 06/07/17 06/07/17 06/07/17 04:55 04:56 04:57 Temperature Pulse Rate 36 36 36 Respiratory 17 12 17 Rate Blood Pressure (mmHg) O2 Sat by Pulse 95 95 96 Oximetry 06/07/17 06/07/17 06/07/17 04:58 04:59 05:00 Temperature Pulse Rate 36 36 35 Respiratory 16 24 17 Rate Blood Pressure 117/62 (mmHg) O2 Sat by Pulse 95 95 95 Oximetry 06/07/17 06/07/17 06/07/17 05:02 05:03 05:04 Temperature Pulse Rate 36 36 36 Respiratory 20 22 24 Rate Blood Pressure (mmHg) O2 Sat by Pulse 96 95 96 Oximetry 06/07/17 06/07/17 06/07/17 05:26 05:27 05:28 Temperature Pulse Rate 36 35 35 Respiratory 18 18 24 Rate Blood Pressure (mmHg) O2 Sat by Pulse 94 94 95 Oximetry 06/07/17 06/07/17 06/07/17 05:29 05:30 05:31 Temperature Pulse Rate 35 36 36 Respiratory 17 19 18 Rate Blood Pressure (mmHg) O2 Sat by Pulse 95 95 94 Oximetry 06/07/17 06/07/17 06/07/17 05:32 05:33 05:34 Temperature Pulse Rate 35 35 36 Respiratory 18 18 21 Rate Blood Pressure (mmHg) O2 Sat by Pulse 94 94 95 Oximetry 06/07/17 06/07/17 06/07/17 05:35 05:36 05:37 Temperature Pulse Rate 36 35 36 Respiratory 18 22 17 Rate Blood Pressure (mmHg) O2 Sat by Pulse 95 94 94 Oximetry 06/07/17 06/07/17 06/07/17 05:38 05:39 05:40 Temperature Pulse Rate 36 36 36 Respiratory 17 18 18 Rate Blood Pressure (mmHg) O2 Sat by Pulse 94 94 94 Oximetry 06/07/17 06/07/17 06/07/17 05:41 05:42 05:43 Temperature Pulse Rate 36 36 36 Respiratory 19 19 17 Rate Blood Pressure (mmHg) O2 Sat by Pulse 94 94 94 Oximetry 06/07/17 06/07/17 06/07/17 05:44 05:45 05:46 Temperature Pulse Rate 37 36 36 Respiratory 17 18 18 Rate Blood Pressure (mmHg) O2 Sat by Pulse 95 94 95 Oximetry 06/07/17 06/07/17 06/07/17 05:47 05:48 05:49 Temperature Pulse Rate 36 36 36 Respiratory 19 18 19 Rate Blood Pressure (mmHg) O2 Sat by Pulse 95 94 95 Oximetry 06/07/17 06/07/17 06/07/17 05:50 05:51 05:52 Temperature Pulse Rate 36 36 36 Respiratory 18 18 18 Rate Blood Pressure (mmHg) O2 Sat by Pulse 95 95 95 Oximetry 06/07/17 06/07/17 06/07/17 05:53 05:54 05:55 Temperature Pulse Rate 36 36 36 Respiratory 22 18 18 Rate Blood Pressure (mmHg) O2 Sat by Pulse 94 94 94 Oximetry 06/07/17 06/07/17 06/07/17 05:56 05:57 05:58 Temperature Pulse Rate 36 36 36 Respiratory 18 19 18 Rate Blood Pressure (mmHg) O2 Sat by Pulse 94 94 94 Oximetry 06/07/17 06/07/17 06/07/17 05:59 06:00 06:02 Temperature Pulse Rate 36 36 35 Respiratory 21 21 18 Rate Blood Pressure 106/57 (mmHg) O2 Sat by Pulse 94 96 95 Oximetry 06/07/17 06/07/17 06/07/17 06:03 06:04 06:05 Temperature Pulse Rate 36 36 36 Respiratory 18 21 26 Rate Blood Pressure (mmHg) O2 Sat by Pulse 95 95 96 Oximetry 06/07/17 06/07/17 06/07/17 06:06 06:07 06:08 Temperature Pulse Rate 36 36 36 Respiratory 29 20 27 Rate Blood Pressure (mmHg) O2 Sat by Pulse 96 95 95 Oximetry 06/07/17 06/07/17 06/07/17 06:09 06:10 06:11 Temperature Pulse Rate 36 36 35 Respiratory 18 19 10 Rate Blood Pressure (mmHg) O2 Sat by Pulse 96 97 95 Oximetry 06/07/17 06/07/17 06/07/17 06:12 06:13 06:14 Temperature Pulse Rate 36 36 36 Respiratory 20 16 20 Rate Blood Pressure (mmHg) O2 Sat by Pulse 97 96 96 Oximetry 06/07/17 06/07/17 06:15 06:16 Temperature Pulse Rate 35 36 Respiratory 14 21 Rate Blood Pressure (mmHg) O2 Sat by Pulse 94 96 Oximetry Oxygen Devices in Use Now: None Appearance: Young female lying in bed, NAD Eyes: No Scleral Icterus Ears/Nose/Mouth/Throat: Mucous Membranes Moist Respiratory: Symmetrical Chest Expansion and Respiratory Effort, Clear to Auscultation Cardiovascular: NL Sounds; No Murmurs; No JVD, No Edema, - - bradycardic Abdominal: NL Sounds; No Tenderness; No Distention Extremities: No Clubbing, Cyanosis Skin: No Rash or Ulcers, No Nodules or Sclerosis Neurological: Alert and Oriented x 3 Result Diagrams: 06/05/17 12:45 06/05/17 12:45 Microbiology and Other Data: Microbiology 06/05/17 15:55 Nasal Screen MRSA (PCR)([facility]) - Final Nasal Mrsa Negative Assess/Plan/Problems-Billing Ms Woodruff is a 36 yo F who has a h/o depression and presented to the ER with c/ o chest discomfort and lightheadedness and was found to be in 3rd degree HB. - Patient Problems (1) Third degree heart block Current Visit: Yes Status: Acute Code(s): I44.2 - ATRIOVENTRICULAR BLOCK, COMPLETE SNOMED Code(s): 73571439 Comment: Lyme serology positive. Awaiting confirmatory testing. 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 Continue to monitor in the ICU in case she loses her good escape rhythm. (2) Depression Current Visit: Yes Status: Acute Code(s): F32.9 - MAJOR DEPRESSIVE DISORDER , SINGLE EPISODE, UNSPECIFIED SNOMED Code(s): 11958360 Comment: Hold zoloft due to rare side effect of AV block. (3) DVT prophylaxis Current Visit: Yes Status: Acute Code(s): DKX3560 - SNOMED Code(s): 620244335 Comment: ambulation (4) Full code status Current Visit: Yes Status: Acute Code(s): Z78.9 - OTHER SPECIFIED HEALTH STATUS SNOMED Code(s): 362094632
[2017-06-07 15:27] LABS: Lyme Disease IgG Ab WB Positive (Negative)
[2017-06-07] MEDS: LEVONORGESTREL PO SCH (20:31)
[2017-06-07] MEDS: ETHINYL ESTRADIOL PO SCH (20:31)
--- NOTE | 2017-06-08 13:43 | PN ---
Subjective Date of Service: 06/08/17 Interval History: Pt is feeling well. She denies any chest pain or SOB. She has not been up and walking much. No lightheadedness. Objective Active Medications: Acetaminophen (Tylenol Tab*) 650 mg PO Q4H PRN PRN Reason: PAIN Ceftriaxone Sodium 2 gm/ (Sodium Chloride) 100 mls @ 200 mls/hr IVPB Q24H [facility] Last Admin: 06/08/17 12:46 Dose: 200 mls/hr Pto: (Levonorgestrel & Eth Estradiol [ Marlissa 0.15-30 Mg- Mcg] 1 Tab) 1 tab PO BEDTIME [facility] Last Admin: 06/07/17 20:31 Dose: 1 tab Ondansetron HCl (Zofran Inj*) 4 mg IV Q6H PRN PRN Reason: NAUSEA Vital Signs 06/07/17 06/07/17 06/07/17 14:00 15:00 15:01 Temperature Pulse Rate 38 35 36 Respiratory 16 11 14 Rate Blood Pressure 112/53 104/53 (mmHg) O2 Sat by Pulse 96 96 Oximetry 06/07/17 06/07/17 06/07/17 15:22 16:00 17:00 Temperature 99.2 F Pulse Rate 36 36 Respiratory 16 17 Rate Blood Pressure 101/57 113/59 (mmHg) O2 Sat by Pulse 98 98 Oximetry 06/07/17 06/07/17 06/07/17 18:00 18:18 19:00 Temperature Pulse Rate 38 37 37 Respiratory 18 15 17 Rate Blood Pressure 120/64 120/64 119/53 (mmHg) O2 Sat by Pulse 99 99 97 Oximetry 06/07/17 06/07/17 06/07/17 19:43 20:00 20:01 Temperature 98.5 F Pulse Rate 37 36 Respiratory 20 17 Rate Blood Pressure 110/56 (mmHg) O2 Sat by Pulse 96 97 Oximetry 06/07/17 06/07/17 06/07/17 20:48 21:00 21:51 Temperature Pulse Rate 36 Respiratory 16 17 19 Rate Blood Pressure 128/60 (mmHg) O2 Sat by Pulse 96 Oximetry 06/07/17 06/07/17 06/07/17 22:00 22:01 23:00 Temperature Pulse Rate 36 37 35 Respiratory 20 17 17 Rate Blood Pressure 128/67 106/50 (mmHg) O2 Sat by Pulse 95 97 96 Oximetry 06/07/17 06/08/17 06/08/17 23:30 00:00 01:00 Temperature 98.8 F Pulse Rate 36 36 34 Respiratory 19 18 9 Rate Blood Pressure 97/43 104/46 (mmHg) O2 Sat by Pulse 95 95 96 Oximetry 06/08/17 06/08/17 06/08/17 02:00 03:00 03:57 Temperature 98.4 F Pulse Rate 35 34 Respiratory 12 16 15 Rate Blood Pressure 115/54 100/47 (mmHg) O2 Sat by Pulse 97 95 Oximetry 06/08/17 06/08/17 06/08/17 04:00 04:05 05:00 Temperature Pulse Rate 34 35 33 Respiratory 13 17 19 Rate Blood Pressure 119/63 (mmHg) O2 Sat by Pulse 97 94 96 Oximetry 06/08/17 06/08/17 06/08/17 05:01 06:00 06:01 Temperature Pulse Rate 33 34 34 Respiratory 17 17 16 Rate Blood Pressure 96/46 92/54 (mmHg) O2 Sat by Pulse 95 98 96 Oximetry 06/08/17 06/08/17 06/08/17 07:00 07:42 07:44 Temperature 97.8 F Pulse Rate 34 Respiratory 16 16 Rate Blood Pressure 106/58 (mmHg) O2 Sat by Pulse 95 Oximetry 06/08/17 06/08/17 06/08/17 08:00 09:00 09:01 Temperature Pulse Rate 35 36 37 Respiratory 18 19 18 Rate Blood Pressure 121/94 104/45 (mmHg) O2 Sat by Pulse 97 98 98 Oximetry 06/08/17 06/08/17 06/08/17 10:00 10:01 11:00 Temperature Pulse Rate 35 37 35 Respiratory 18 18 13 Rate Blood Pressure 116/51 (mmHg) O2 Sat by Pulse 96 95 95 Oximetry 06/08/17 06/08/17 06/08/17 11:01 11:08 11:36 Temperature 98.0 F Pulse Rate 36 35 Respiratory 18 17 Rate Blood Pressure 86/37 91/42 (mmHg) O2 Sat by Pulse 95 96 Oximetry 06/08/17 06/08/17 06/08/17 12:00 12:01 12:46 Temperature Pulse Rate 36 39 37 Respiratory 26 21 20 Rate Blood Pressure 111/53 119/62 (mmHg) O2 Sat by Pulse 95 97 98 Oximetry 06/08/17 06/08/17 13:00 13:01 Temperature Pulse Rate 37 37 Respiratory 17 14 Rate Blood Pressure 114/55 (mmHg) O2 Sat by Pulse 96 97 Oximetry Oxygen Devices in Use Now: None Appearance: Young female lying in bed, NAD Eyes: No Scleral Icterus Ears/Nose/Mouth/Throat: Mucous Membranes Moist Respiratory: Symmetrical Chest Expansion and Respiratory Effort, Clear to Auscultation Cardiovascular: NL Sounds; No Murmurs; No JVD, No Edema, - - bradycardic Abdominal: NL Sounds; No Tenderness; No Distention Extremities: No Clubbing, Cyanosis Skin: No Rash or Ulcers, No Nodules or Sclerosis Neurological: Alert and Oriented x 3 Result Diagrams: 06/05/17 12:45 06/05/17 12:45 Microbiology and Other Data: Microbiology 06/05/17 15:55 Nasal Screen MRSA (PCR)([facility]) - Final Nasal Mrsa Negative Assess/Plan/Problems-Billing Ms Woodruff is a 36 yo F who has a h/o depression and presented to the ER with c/ o chest discomfort and lightheadedness and was found to be in 3rd degree HB. - Patient Problems (1) Third degree heart block Current Visit: Yes Status: Acute Code(s): I44.2 - ATRIOVENTRICULAR BLOCK, COMPLETE SNOMED Code(s): 12427033 Comment: 2 IgM bands present on Western Blot. 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 Continue to await normalization of her heart rhythm. Will get ID consult on 06/11/17. (2) Depression Current Visit: Yes Status: Acute Code(s): F32.9 - MAJOR DEPRESSIVE DISORDER , SINGLE EPISODE, UNSPECIFIED SNOMED Code(s): 04181896 Comment: Hold zoloft due to rare side effect of AV block. (3) DVT prophylaxis Current Visit: Yes Status: Acute Code(s): HTY3652 - SNOMED Code(s): 642131466 Comment: ambulation (4) Full code status Current Visit: Yes Status: Acute Code(s): Z78.9 - OTHER SPECIFIED HEALTH STATUS SNOMED Code(s): 089975533
[2017-06-08] MEDS: ETHINYL ESTRADIOL PO SCH (20:59)
[2017-06-08] MEDS: LEVONORGESTREL PO SCH (20:59)
--- NOTE | 2017-06-09 09:55 | PN ---
Cardiology Progress Note Date of service: 06/09/17. CC: dizzy. The patient is ambulating and feeling well. Monitor: AV dissociation with stable escape, unchanged. Exam: awake alert, no neurological deficits. Cor: s1s2 regular, no murmurs. Lab: Lyme serologies c/w recent Lyme A/P Complete heart block, stable escape rhythm in setting of acute Lyme, Ceftriaxone day 4. -From my standpoint OK continue to monitor as potentially a reversable heart block. -Await Dr. Alonso's recommendations. Discussed the above issues with the patient and she is understanding.
--- NOTE | 2017-06-09 10:31 | PN ---
Subjective Date of Service: 06/09/17 Interval History: Pt is feeling well. No chest pain or lightheadedness with ambulation yesterday. No issues today. Objective Active Medications: Acetaminophen (Tylenol Tab*) 650 mg PO Q4H PRN PRN Reason: PAIN Ceftriaxone Sodium 2 gm/ (Sodium Chloride) 100 mls @ 200 mls/hr IVPB Q24H [facility] Last Admin: 06/08/17 12:46 Dose: 200 mls/hr Pto: (Levonorgestrel & Eth Estradiol [ Marlissa 0.15-30 Mg- Mcg] 1 Tab) 1 tab PO BEDTIME [facility] Last Admin: 06/08/17 20:59 Dose: 1 tab Ondansetron HCl (Zofran Inj*) 4 mg IV Q6H PRN PRN Reason: NAUSEA Vital Signs 06/08/17 06/08/17 06/08/17 11:00 11:01 11:08 Temperature Pulse Rate 35 36 35 Respiratory 13 18 17 Rate Blood Pressure 86/37 91/42 (mmHg) O2 Sat by Pulse 95 95 96 Oximetry 06/08/17 06/08/17 06/08/17 11:36 12:00 12:01 Temperature 98.0 F Pulse Rate 36 39 Respiratory 26 21 Rate Blood Pressure 111/53 (mmHg) O2 Sat by Pulse 95 97 Oximetry 06/08/17 06/08/17 06/08/17 12:46 13:00 13:01 Temperature Pulse Rate 37 37 37 Respiratory 20 14 14 Rate Blood Pressure 119/62 114/55 (mmHg) O2 Sat by Pulse 98 96 97 Oximetry 06/08/17 06/08/17 06/08/17 14:00 14:01 15:00 Temperature Pulse Rate 36 38 37 Respiratory 15 18 18 Rate Blood Pressure 109/47 (mmHg) O2 Sat by Pulse 96 95 96 Oximetry 06/08/17 06/08/17 06/08/17 15:30 16:00 17:00 Temperature 99.2 F Pulse Rate 36 35 Respiratory 23 17 Rate Blood Pressure (mmHg) O2 Sat by Pulse 97 97 Oximetry 06/08/17 06/08/17 06/08/17 18:00 19:00 20:00 Temperature 98.8 F Pulse Rate 40 36 35 Respiratory 14 14 20 Rate Blood Pressure (mmHg) O2 Sat by Pulse 98 96 96 Oximetry 08/06/08/17 06/08/17 20:29 21:00 21:01 Temperature Pulse Rate 36 40 34 Respiratory 17 15 21 Rate Blood Pressure 107/69 124/61 (mmHg) O2 Sat by Pulse 96 98 97 Oximetry 06/08/17 06/08/17 06/08/17 22:00 22:01 23:00 Temperature Pulse Rate 34 33 34 Respiratory 16 19 14 Rate Blood Pressure 109/58 (mmHg) O2 Sat by Pulse 97 96 Oximetry 06/08/17 06/08/17 06/08/17 23:01 23:10 23:42 Temperature Pulse Rate 31 32 Respiratory 10 11 12 Rate Blood Pressure 99/46 (mmHg) O2 Sat by Pulse 95 96 Oximetry 06/09/17 06/09/17 06/09/17 00:00 01:00 01:01 Temperature 98.7 F Pulse Rate 32 32 33 Respiratory 12 16 17 Rate Blood Pressure 98/48 114/52 (mmHg) O2 Sat by Pulse 97 95 Oximetry 06/09/17 06/09/17 06/09/17 02:00 02:01 03:00 Temperature Pulse Rate 35 37 33 Respiratory 16 14 23 Rate Blood Pressure 117/59 (mmHg) O2 Sat by Pulse 97 96 96 Oximetry 06/09/17 06/09/17 06/09/17 03:01 04:00 04:01 Temperature 99.1 F Pulse Rate 33 31 35 Respiratory 23 19 16 Rate Blood Pressure 93/42 112/53 (mmHg) O2 Sat by Pulse 96 96 96 Oximetry 06/09/17 06/09/17 06/09/17 05:00 05:04 06:00 Temperature Pulse Rate 32 38 33 Respiratory 15 20 14 Rate Blood Pressure 106/48 117/58 (mmHg) O2 Sat by Pulse 94 95 96 Oximetry 06/09/17 06/09/17 06/09/17 07:00 07:01 07:40 Temperature 98.4 F Pulse Rate 36 39 Respiratory 11 17 Rate Blood Pressure 106/48 (mmHg) O2 Sat by Pulse 95 95 Oximetry 06/09/17 06/09/17 06/09/17 08:00 08:01 09:00 Temperature Pulse Rate 35 36 Respiratory 15 17 17 Rate Blood Pressure 105/58 (mmHg) O2 Sat by Pulse 94 99 Oximetry 06/09/17 09:01 Temperature Pulse Rate 36 Respiratory 16 Rate Blood Pressure 106/48 (mmHg) O2 Sat by Pulse 98 Oximetry Oxygen Devices in Use Now: None Appearance: Young female sitting on the edge of the bed, NAD Eyes: No Scleral Icterus Ears/Nose/Mouth/Throat: Mucous Membranes Moist Respiratory: Symmetrical Chest Expansion and Respiratory Effort, Clear to Auscultation Cardiovascular: NL Sounds; No Murmurs; No JVD, No Edema, - - bradycardic Abdominal: NL Sounds; No Tenderness; No Distention Extremities: No Clubbing, Cyanosis Skin: No Rash or Ulcers, No Nodules or Sclerosis Neurological: Alert and Oriented x 3 Result Diagrams: 06/05/17 12:45 06/05/17 12:45 Microbiology and Other Data: Microbiology 06/05/17 15:55 Nasal Screen MRSA (PCR)([facility]) - Final Nasal Mrsa Negative Assess/Plan/Problems-Billing Ms Woodruff is a 36 yo F who has a h/o depression and presented to the ER with c/ o chest discomfort and lightheadedness and was found to be in 3rd degree HB. 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 ID consult 06/11/17. ? how long to wait for return of her heart rhythm before just placing a pacemaker. (2) Depression Current Visit: Yes Status: Acute Code(s): F32.9 - MAJOR DEPRESSIVE DISORDER , SINGLE EPISODE, UNSPECIFIED SNOMED Code(s): 70028133 Comment: Hold zoloft due to rare side effect of AV block. (3) DVT prophylaxis Current Visit: Yes Status: Acute Code(s): AKP7320 - SNOMED Code(s): 312891331 Comment: ambulation (4) Full code status Current Visit: Yes Status: Acute Code(s): Z78.9 - OTHER SPECIFIED HEALTH STATUS SNOMED Code(s): 742368925
[2017-06-09] MEDS: ETHINYL ESTRADIOL PO SCH (21:08)
[2017-06-09] MEDS: LEVONORGESTREL PO SCH (21:08)
--- NOTE | 2017-06-10 14:29 | PN ---
Subjective Date of Service: 06/10/17 - cc: dizzy, heart block Interval History: I was called urgently this morning. ICU nurse reported new pauses, awoke the patient and SBP in low 90's. I was asked to come in and implant a temporary pacemaker. The patient was w/o complaints. On my arrival pt awake, alert, smiling, in no distress, no c/o. Medications Active Medications: Acetaminophen (Tylenol Tab*) 650 mg PO Q4H PRN PRN Reason: PAIN Ceftriaxone Sodium 2 gm/ (Sodium Chloride) 100 mls @ 200 mls/hr IVPB Q24H [facility] Last Admin: 06/10/17 12:48 Dose: 200 mls/hr Pto: (Levonorgestrel & Eth Estradiol [ Marlissa 0.15-30 Mg- Mcg] 1 Tab) 1 tab PO BEDTIME [facility] Last Admin: 06/09/17 21:08 Dose: 1 tab Ondansetron HCl (Zofran Inj*) 4 mg IV Q6H PRN PRN Reason: NAUSEA Objective Vital Signs: Temp Pulse Resp BP Pulse Ox 98.3 F 53 17 102/56 89 06/10/17 07:29 06/10/17 11:01 06/10/17 11:53 06/10/17 11:01 06/10/17 11:01 Oxygen Devices in Use Now: None Appearance: young woman, lying in bed, in no disteress. Eyes: No Scleral Icterus, PERRLA Ears/Nose/Mouth/Throat: Clear Oropharnyx, Mucous Membranes Moist Neck: No Thyroid Enlargement, Masses Respiratory: Clear to Auscultation Cardiovascular: NL Sounds; No Murmurs; No JVD, RRR Abdominal: No Hepatosplenomegaly - obese Extremities: No Edema, No Clubbing, Cyanosis Skin: No Rash or Ulcers Neurological: Alert and Oriented x 3, NL Muscle Strength and Tone Lines/Tubes/Other Access: Clean, Dry and Intact Peripheral IV Laboratory Results: INR (Anticoag Therapy) 0.99 (0.89-1.11) 06/05/17 12:45 APTT 26.2 seconds (26.0-36.3) 06/05/17 12:45 Total Bilirubin 0.40 mg/dL (0.2-1.0) 06/05/17 12:45 AST 19 U/L (13-39) 06/05/17 12:45 ALT 25 U/L (7-52) 06/05/17 12:45 Alkaline Phosphatase 91 U/L (34-104) 06/05/17 12:45 CK-MB (CK-2) 0.9 ng/mL (0.6-6.3) 06/05/17 12:45 Total Protein 7.5 g/dL (6.4-8.9) 06/05/17 12:45 Albumin 3.8 g/dL (3.2-5.2) 06/05/17 12:45 Globulin 3.7 g/dL (2-4) 06/05/17 12:45 Albumin/Globulin Ratio 1.0 (1-3) 06/05/17 12:45 TSH 1.39 mcIU/mL (0.34-5.60) 06/05/17 12:45 06/05/17 18:20 Troponin I 0.00 EKG Data: Monitor this AM: NSR, 1degree AVB alternating with 2nd degree AVB type 1 (improved c/w complete heart block seen yesterday). Assessment/Plan 36 yo with new onset palpitations and lightheaded with complete heart block secondary to Lyme. Heart block improving. I explained to the patient that although she was newly dropping beats that the heart block was improving. She is understanding and happy. No indication for a temporary pacer today. Continue to monitor on telemetry.
--- NOTE | 2017-06-10 15:50 | PN ---
Subjective Date of Service: 06/10/17 Interval History: HOSPITALIST PROGRESS NOTE Patient seen and examined at bedside. She feels well today. Although she is going back and forth between 1st and 2nd degree AVB, she's been asymptomatic. Family History: Unchanged from Admission Social History: Unchanged from Admission Past Medical History: Unchanged from Admission Objective Active Medications: Acetaminophen (Tylenol Tab*) 650 mg PO Q4H PRN PRN Reason: PAIN Ceftriaxone Sodium 2 gm/ (Sodium Chloride) 100 mls @ 200 mls/hr IVPB Q24H [facility] Last Admin: 06/10/17 12:48 Dose: 200 mls/hr Pto: (Levonorgestrel & Eth Estradiol [ Marlissa 0.15-30 Mg- Mcg] 1 Tab) 1 tab PO BEDTIME [facility] Last Admin: 06/09/17 21:08 Dose: 1 tab Ondansetron HCl (Zofran Inj*) 4 mg IV Q6H PRN PRN Reason: NAUSEA Vital Signs 06/10/17 06/10/17 06/10/17 07:29 08:00 08:01 Temperature 98.3 F Pulse Rate 48 34 Respiratory 14 17 Rate Blood Pressure 103/54 (mmHg) O2 Sat by Pulse 96 92 Oximetry Oxygen Devices in Use Now: None Appearance: Young lady lying in bed in [facility]. Eyes: No Scleral Icterus Ears/Nose/Mouth/Throat: Mucous Membranes Moist Neck: Trachea Midline Respiratory: Symmetrical Chest Expansion and Respiratory Effort, Clear to Auscultation Cardiovascular: NL Sounds; No Murmurs; No JVD, RRR Abdominal: NL Sounds; No Tenderness; No Distention Extremities: No Edema Skin: No Rash or Ulcers Neurological: Alert and Oriented x 3, NL Muscle Strength and Tone Lines/Tubes/Other Access: Clean, Dry and Intact Peripheral IV Nutrition: Taking PO's Result Diagrams: 06/05/17 12:45 06/05/17 12:45 Assess/Plan/Problems-Billing Assessment: Ms Woodruff is a 36 yo F who has a h/o depression and presented to the ER with c/ o chest discomfort and lightheadedness and was found to be in 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 - Patient Problems (1) Lyme carditis Comment: - Lyme serology IgM positive. - Had 3rd degree HB on admission, but now alternating between 1st and 2nd degree HB, asymptomatic. - Cardiology input appreciated - no indication for temporary pacer at this time. - Will increase exertion carefully today. - Continue ceftriaxone 2g IV daily for lyme carditis/3rd degree HB. - ID consult requested. (2) Depression Comment: - Zoloft on hold for now due to rare side effect of AV block. (3) DVT prophylaxis Comment: - SQ heparin as she's not moving much yet. (4) Full code status Status and Disposition: Inpatient for management of Lyme carditis, requiring >48h for stabilization.
[2017-06-10] MEDS: Heparin VIAL(*) 5000 UNITS/ML VIAL (FIVE THOUSAND) SUBCUT SCH (21:40)
[2017-06-10] MEDS: LEVONORGESTREL PO SCH (21:41)
[2017-06-10] MEDS: ETHINYL ESTRADIOL PO SCH (21:41)
[2017-06-11] MEDS: Heparin VIAL(*) 5000 UNITS/ML VIAL (FIVE THOUSAND) SUBCUT SCH ×3 (05:05→21:21)
[2017-06-11 09:12] LABS: Hematocrit 41 % (35-47); Hemoglobin 13.4 g/dl (12.0-16.0); Mean Corpuscular HGB Conc 33 g/dl (31-36); Mean Corpuscular Hemoglobin 26 pg (27-31); Mean Corpuscular Volume 80 fL (80-97); Mean Platelet Volume 9 um3 (7.4-10.4); Red Blood Count 5.11 10^6/ul (4.0-5.4); Red Cell Distribution Width 15 % (10.5-15); White Blood Count 5.8 10^3/ul (3.5-10.8)
[2017-06-11 09:32] LABS: BUN/Creatinine Ratio 11.6 (8-20); Calcium 9.5 mg/dL (8.6-10.3); EGFR African American 97.1 (>60); EGFR Non-African American 75.5 (>60); Potassium 4.3 mmol/L (3.5-5.0)
--- NOTE | 2017-06-11 12:56 | PN ---
Subjective Date of Service: 06/11/17 Interval History: HOSPITALIST PROGRESS NOTE Patient seen and examined at bedside. Remains asymptomatic, fluctuating between 1st and 2nd degree AVB. Family History: Unchanged from Admission Social History: Unchanged from Admission Past Medical History: Unchanged from Admission Objective Active Medications: Acetaminophen (Tylenol Tab*) 650 mg PO Q4H PRN PRN Reason: PAIN Heparin Sodium (Porcine) (Heparin Vial(*)) 5,000 units SUBCUT Q8HR [facility] Last Admin: 06/11/17 05:05 Dose: 5,000 units Ceftriaxone Sodium 2 gm/ (Sodium Chloride) 100 mls @ 200 mls/hr IVPB Q24H [facility] Last Admin: 06/11/17 12:40 Dose: 200 mls/hr Pto: (Levonorgestrel & Eth Estradiol [ Marlissa 0.15-30 Mg- Mcg] 1 Tab) 1 tab PO BEDTIME [facility] Last Admin: 06/10/17 21:41 Dose: 1 tab Ondansetron HCl (Zofran Inj*) 4 mg IV Q6H PRN PRN Reason: NAUSEA Vital Signs 06/11/17 06/11/17 06/11/17 07:01 07:31 08:00 Temperature 100.1 F Pulse Rate 39 57 Respiratory 15 21 Rate Blood Pressure 107/52 (mmHg) O2 Sat by Pulse 95 95 Oximetry Oxygen Devices in Use Now: None Appearance: Pleasant young lady lying in bed in NAD. Eyes: No Scleral Icterus Ears/Nose/Mouth/Throat: Mucous Membranes Moist Neck: Trachea Midline Respiratory: Symmetrical Chest Expansion and Respiratory Effort, Clear to Auscultation Cardiovascular: RRR - Normal S1 and S2 Abdominal: NL Sounds; No Tenderness; No Distention Extremities: No Edema Neurological: Alert and Oriented x 3, NL Muscle Strength and Tone Lines/Tubes/Other Access: Clean, Dry and Intact Peripheral IV Nutrition: Taking PO's Result Diagrams: 06/11/17 08:50 06/11/17 08:50 Assess/Plan/Problems-Billing Assessment: Ms Woodruff is a 36 yo F who has a h/o depression and presented to the ER with c/ o chest discomfort and lightheadedness and was found to be in 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 - Patient Problems (1) Lyme carditis Comment: - Lyme serology IgM positive. - Had 3rd degree HB on admission, but now alternating between 1st and 2nd degree HB, asymptomatic. - Cardiology input appreciated - no indication for temporary pacer at this time. - Will increase exertion carefully today. - Continue ceftriaxone 2g IV daily for lyme carditis/3rd degree HB. - Awaiting ID consult. (2) Depression Comment: - Zoloft on hold for now due to rare side effect of AV block. (3) DVT prophylaxis Comment: - SQ heparin as she's not moving much yet. (4) Full code status Status and Disposition: Inpatient for management of Lyme carditis, requiring >48h for stabilization.
--- NOTE | 2017-06-11 14:49 | CONS ---
CONSULTATION REPORT: DATE OF CONSULTATION: 06/11/17 REQUESTING PHYSICIAN: Dr. Zapata. CONSULTING SERVICE: Infectious Disease. REASON FOR CONSULTATION: Lyme carditis. IMPRESSION: Initially, presyncope and dyspnea on exertion in the setting of complete heart block and junctional rhythm. The Lyme serology was positive. Western Blot IgM 3 bands positive. Taking together, she has Lyme carditis, now has subsequently had second-degree block yesterday and now first-degree block today. RECOMMENDATIONS: Continue ceftriaxone while she is in the hospital and then when her MA interval is less than 300 msec, she can be discharged on doxycycline 100 mg by mouth twice a day for another 10 days. She and I discussed ticks, Lyme, and her expected recovery period. HISTORY OF PRESENT ILLNESS: This is a 36-year-old woman admitted on 06/05/17 with dyspnea on exertion, presyncope, found to have complete heart block and then junctional rhythm. Lyme serology was sent with the results as above. She has been monitored in the ICU and was eventually in second-degree block and then overnight first-degree block, which she is in this morning as well. She has resolution of her dyspnea and presyncope. She did not recall a febrile illness or a rash back in the spring or earlier in the summer. She spends a fair amount of time outdoors in this area. PAST MEDICAL HISTORY: 1. Depression. 2. Obesity. PAST SURGICAL HISTORY: Surgeries, none. MEDICATIONS: 1. Tylenol. 2. Heparin subcutaneous injection. 3. Ceftriaxone 2 g a day. 4. Zofran p.r.n. ALLERGIES: No known drug allergies. 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 Lives in [facility]. No smoking. FAMILY HISTORY: Mom is alive at 64 with depression and hypertension. Father is alive at 69 with colitis. REVIEW OF SYSTEMS: All negative to a full review of systems except as noted above. PHYSICAL EXAM: Vital Signs: Temperature 37, heart rate 70, respiratory rate 20 , blood pressure 126/70, and oxygen saturation 96% on room air. In general, she is awake, in no acute distress. Neurologic: She is oriented x3. Follows all commands. HEENT: There is no conjunctival hemorrhage. Oropharynx is without lesions. Neck is supple without nuchal rigidity. Heart has regular rate and rhythm without murmurs, rubs, or gallops. Lungs are clear to auscultation bilaterally. Abdomen is soft, nontender, and nondistended. There are bowel sounds present. Skin: There is no rash or splinter hemorrhages. Musculoskeletal: There is no spine tenderness to palpation. No joint synovitis. LABORATORY DATA: White blood cell count 5, hemoglobin 13, platelets 230. Creatinine is 0.8. Troponin 0. HCG is negative. Urinalysis shows ketones and leukocyte esterase. Please see impressions and recommendations as outlined above, which I have discussed with Dr. Mckeon. Thanks for asking me to see Ms. Woodruff in consultation. [id number]/[facility] #: [id number] [facility]
[2017-06-11] MEDS: ETHINYL ESTRADIOL PO SCH (21:13)
[2017-06-11] MEDS: LEVONORGESTREL PO SCH (21:13)
[2017-06-11] MEDS ORDERED: Heparin VIAL(*) 5000 UNITS/ML VIAL (FIVE THOUSAND) ONE (21:18)
[2017-06-12] MEDS: Heparin VIAL(*) 5000 UNITS/ML VIAL (FIVE THOUSAND) SUBCUT SCH (06:02)
[2017-06-12 08:36] VITALS: BP 115/51
[2017-06-12] MEDS ORDERED: DOXYcycline CAP(*) 100 MG PO ONE (10:12)
--- NOTE | 2017-06-12 21:58 | DS ---
CC: Dr. Moore; Dr. Alonso; Dr. Mckeon * DISCHARGE SUMMARY: DATE OF ADMISSION: 06/05/17 DATE OF DISCHARGE: 06/12/17 PRIMARY CARE PROVIDER: Dr. Moore. CONSULTING INFECTIOUS DISEASE SPECIALIST: Dr. Alonso. CHIEF CONSULTING BENEFITS CLERK: Dr. Mckeon. DISCHARGE DIAGNOSIS: Lyme carditis with third-degree AV block. SECONDARY DIAGNOSIS: Depression. MEDICATION LIST: Marlissa 0.15/30 one tablet p.o. daily. New medications: Doxycycline 100 mg p.o. b.i.d. for 10 more days. Zoloft was discontinued for now. HOSPITAL COURSE: Ms. Woodruff is a 36-year-old lady with a past medical history as stated above that presented to the emergency room on 06/05/17 with complaints of chest pain and lightheadedness. She also had progressive shortness of breath to the point that with minimal activity, she would become dyspneic. The patient was found to be in third-degree heart block and although the patient did not recall any tick bites or having erythema migraines, the impression was that she likely had mild carditis. The patient was admitted to the intensive care unit for further evaluation. Transthoracic echocardiogram showed ejection fraction of 55% to 60% with no significant abnormalities. The patient was seen in consultation by Cardiology (Dr. 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 She was started empirically on ceftriaxone and she had slow improvement of her symptoms. She was followed by Cardiology throughout the hospital stay, but there was no need for a temporary pacemaker. The patient progressed to a second -degree heart block, then first-degree block, and on the day of discharge, she is back in sinus rhythm and asymptomatic. The patient's serology showed 3 positive IgM bands for Lyme confirming her diagnosis. The patient was seen in consultation by Infectious Disease (Dr. Alonso) and his impression was that the patient presented with near syncope, dyspnea on exertion in the setting of complete heart block and junctional rhythm. Lyme serology was positive with Western Blot IgM 3 bands positive. His conclusion was the patient had Lyme carditis. His recommendation was to continue ceftriaxone while in the hospital and when her NH interval is less than 300, she could be discharged home on doxycycline 100 mg p.o. b.i.d. for another 10 days. The patient is asymptomatic and medically stable to be discharged home today. Her Zoloft had been held due to the rare, the possible side effect of heart block, but I think after she completes her treatment, it can probably be resumed. PHYSICAL EXAMINATION: Vital Signs: Temperature 98.1, heart rate is 64, respiratory rate is 12, oxygen saturation 99% on room air, blood pressure is 115 /51. General: The patient is a pleasant young lady, sitting up in bed, in no acute distress. CVS: Normal S1 and S2. Regular rate and rhythm. Chest: Breath sounds present bilaterally with no added sounds. Extremities: No edema. Neuro: She is alert and oriented x3. Able to move all 4 extremities. DIET: Regular diet. ACTIVITIES: As tolerated. The patient is advised to avoid excessive physical exertion. DISPOSITION: To home. STATUS DURING THE HOSPITAL: Inpatient. Please keep in mind this is a summarized version of this patient's hospital stay. If you need more information, please feel free to call me at [phone] or please obtain the full medical records. TIME SPENT: Approximately 45 minutes was spent to complete this discharge. [id number] #: [id number] MTDD
== END 2017-06-12 11:55 | disposition home or self-care (01) | DRG 201 ==
LOC: ED 12:17 → ICU 14:59 → MEDTELE 06-11 22:18
PROVIDERS: ADMIT Hospitalist; ATTEND Internal Medicine
DX: I44.2 Atrioventricular block, complete (principal); A69.29 Other conditions associated with Lyme disease; I51.89 Other ill-defined heart diseases; F32.9 Major depressive disorder, single episode, unspecified; Z79.899 Other long term (current) drug therapy; Z81.8 Family history of other mental and behavioral disorders; Z82.49 Family history of ischemic heart disease and other diseases of the circulatory system; Z83.79 Family history of other diseases of the digestive system; E66.9 Obesity, unspecified; Z68.32 Body mass index [BMI] 32.0-32.9, adult; Z79.3 Long term (current) use of hormonal contraceptives
CPT/HCPCS: 36415; 71010; 80048; 80053; 81003; 81015; 82550; 82553; 83735; 83874; 84436; 84443; 84484; 84702; 85025; 85610; 85730; 86617; 86618; 87086; 87641; 93005; 93306; 99212; G0463; J0696; J1644; J3475